=== PATIENT | male | born 1940 | race Caucasian/White ===

== ENCOUNTER 2020-10-14 10:27 | Emergency (ER) | payer MEDICARE ==
[2020-10-14] MEDS ORDERED: KETOROLAC TROMETHAMINE 30MG/ML ONE (13:18)
== END 2020-10-14 13:37 | disposition home or self-care (01) ==
LOC: EDH 10:27
DX: M19.90 Unspecified osteoarthritis, unspecified site (principal); Z72.0 Tobacco use
CPT/HCPCS: 73030; 96372; 99283; J1885

== ENCOUNTER → 2024-10-20 | Outpatient (CLI) | payer MEDICARE ==
--- NOTE | 2024-10-20 13:45 | HMCIMG ---
US VENOUS DOPPLER UNILATERAL HISTORY: Hematoma COMPARISON: None TECHNIQUE: Right lower extremity venous Doppler ultrasound study was performed. FINDINGS: The right common femoral, femoral, popliteal, and posterior tibial veins are visualized. Normal flow with augmentation and compressibilities are demonstrated. Right greater saphenous vein is patent. IMPRESSION: 1. No evidence of deep venous thrombosis is seen.
== END | disposition home or self-care (01) ==
LOC: RAH 11:22
PROVIDERS: ATTEND Nurse Practitioner Family
DX: S80.11XD Contusion of right lower leg, subsequent encounter (principal); T14.8XXA Other injury of unspecified body region, initial encounter; W19.XXXD Unspecified fall, subsequent encounter; X58.XXXA Exposure to other specified factors, initial encounter; Y93.89 Activity, other specified; Y92.89 Other specified places as the place of occurrence of the external cause; Y99.8 Other external cause status; R60.0 Localized edema
CPT/HCPCS: 93971